=== PATIENT | female | born 1980 | race Caucasian/White ===

== ENCOUNTER 2021-04-04 13:06 | Emergency (ER) | payer OTHER, SELFPAY ==
[2021-04-04 13:07] VITALS: BP 138/90; PULSE 97; RESP 16; TEMP 36.8; O2SAT 98; BMI 29.5
--- NOTE | 2021-04-04 13:30 | RAD_ITS ---
STUDY: X-RAY - LEFT TIBIA AND FIBULA REASON FOR EXAM: Female, 40 years old. Injury/Pain TECHNIQUE: 3 view(s) of the tibia and fibula were obtained. COMPARISON: None. FINDINGS: Normal visualized tibia. Normal visualized fibula. The soft tissue structures are unremarkable. RAD/Tibia & Fibula 2 Views IMPRESSION: Normal x-ray examination of the tibia and fibula. Electronically Signed: Quang Lennon MD at 14:52 EST , Service support ,
--- NOTE | 2021-04-04 13:30 | RAD_ITS ---
STUDY: X-RAY - LEFT ANKLE REASON FOR EXAM: Female, 40 years old. Injury/Pain TECHNIQUE: 3 view(s) of the ankle. COMPARISON: None. FINDINGS: Normal visualized distal tibia and fibula. Normal medial and lateral malleoli. Normal tibiotalar articulation and ankle mortise. Normal visualized talus. Calcaneal spurs The visualized subtalar, talonavicular, calcaneocuboid and tarsal articulations are normal. The soft tissue structures are unremarkable. RAD/Ankle min 3 Views IMPRESSION: Calcaneal spurs, no demonstrated fracture or suspicious osseous lesion Electronically Signed: Quang Lennon MD at 14:50 EST , Service support ,
--- NOTE | 2021-04-04 13:31 | ED.VIS.LOWEX ---
HPI History of Present Illness HPI Narrative: Patient presents with pain and swelling to her left leg and ankle that began after an injury on 03/18/2021. Patient states she inverted her ankle at that time. Patient states she had x-rays of her foot and ankle done at that time which were negative. Patient was given an Aircast. Patient has been using that along with a different ankle brace for the past 2-1/2 weeks with minimal relief. Patient states her pain is worse with movement. Patient states it is better with rest. Patient admits to some brief intermittent episodes of tingling in her foot. Patient states her pain is otherwise sharp. Chief Complaint: Lower Extremity Injury Informant: patient Occured/Mechanism Mechanism/Context: Yes fall Comment: Inversion injury Onset/Context/Timing Onset: Weeks (2-04/18) Timing: Continuous Quality of Pain: Sharp Location: Left ankle and leg Worsened by: Movement Relieved by: Rest Associated Symptoms Associated Symptoms: Positive for Parasthesia (Brief intermittent paresthesias of the left foot); Negative for Weakness and Loss of Funtion PFSH PFSH Medical History (Updated 04/04/21 @ 15:[address] Gray Mclaughlin DO) Fibromyalgia Home Medications oxycodone-acetaminophen 1 tab PO Q6H PRN PRN 3 Days #12 tablet 04/04/21 [Rx Last Taken Unknown] Allergy/AdvReac Type Severity Reaction Status Date / Time hydrocodone AdvReac Other Verified 04/04/21 13:10 Surgical History H/O section H/O LEEP History of tonsillectomy Hx of appendectomy Social History Smoking Status: Former smoker ROS ROS ED Constitutional Constitutional ED: Denies chills or fever(s) Eyes Eyes: Denies blurry vision or change in vision ENT ENT ED: Denies rhinorrhea or sore throat Cardiovascular Cardiovascular: Denies chest pain or palpitations Respiratory/Chest Respiratory/Chest: Denies cough or dyspnea Gastrointestinal Gastrointestinal: Denies nausea or vomiting Genitourinary Genitourinary ED: Denies dysuria or hematuria Musculoskeletal Musculoskeletal: Denies back pain or neck pain Integumentary Denies abscess or rash Neurologic Neurologic: Denies headache(s) or weakness Allergic/Immunologic Allergic/Immunologic ED: Denies mouth swelling or urticaria EXAM Physical Exam Const Vital Signs: 04/04/21 13:07 Temperature 98.2 F Temperature Source Temporal Pulse Rate 97 Respiratory Rate 16 Blood Pressure 138/90 H Blood Pressure Mean 106 Pulse Ox 98 Oxygen Delivery Method Room Air Positive well nourished and well developed General Appearance ED: well developed HEENT Reports moist mucous membranes Neck full ROM Extremity Extremity Narrative: There is tenderness over the anterior aspect of the left ankle. There is mild tenderness of the medial malleolus. There is mild edema. There is no ecchymosis. There is no bony crepitance or step-off. There is no deformity noted. There is no tenderness over the fifth metatarsal. There is no tenderness over the proximal fibula. There is good pedal pulse noted. Sensation was intact to light touch in all digits. Capillary refill was less than 2 seconds in all digits. There is some mild tenderness over the posterior aspect of the medial head of the gastrocnemius. There is some mild pain over this area with dorsiflexion of the left ankle. Neuro oriented x3, CN's II-XII intact bilaterally, moves all extremities and no sensory deficits noted Sensorium / Orientation: alert Motor Exam: strength 5/5 throughout MDM MDM MDM Narrative Medical decision making narrative: X-rays of the left ankle were obtained. There are 3 views. On my interpretation, there is no acute fracture. There is no dislocation. There is no soft tissue swelling. Radiologist also interpreted the x-rays and agrees. X-rays of the left tibia and fibula were obtained. There are 3 views. On my interpretation, there is no acute fracture. There is no dislocation. There is no soft tissue swelling. Radiologist also interpreted the x-rays and agrees. Patient was advised of her findings. Patient was given a dose of Percocet here. Patient was given a prescription for a short course of Percocet. Patient was instructed to ice and elevate her left leg. We are unable to do a venous duplex of the left lower extremity today. Patient was given a dose of Lovenox and ordered an outpatient venous duplex of her left leg to be done tomorrow. Patient was given a referral for primary care physician for follow-up care in 3 to 5 days. Patient understands and is agreeable with the plan. All questions were answered. Radiography Diagnostic Testing: Clinical Impression(s) from Imaging Studies Ankle X-Ray 04/04/21 13:30 IMPRESSION: Calcaneal spurs, no demonstrated fracture or suspicious osseous lesion Electronically Signed: Quang Lennon MD at 14:50 EST , Service support , Tibia/Fibula X-Ray 04/04/21 13:30 IMPRESSION: Normal x-ray examination of the tibia and fibula. Electronically Signed: Quang Lennon MD at 14:52 EST , Service support , Discharge Plan Triage Chief Complaint: Lower Extremity Injury ED Provider: Gray Mclaughlin Dx/Rx/DC Orders Clinical Impression: Inversion sprain of left ankle Instructions: ED Muscle Strain, Extremity, ED Ankle Sprain (Adult) Prescriptions: New oxycodone-acetaminophen [oxycodone-acetaminophen] 1 TABLET tablet 1 tab PO Q6H PRN PRN (Reason: Pain) 3 Days Qty: 12 RF: 0 Other Ambulatory Orders: Venous Duplex US, Unilateral (Routine) Facility: [facility] - Location: [facility] Ordered By: Dr. Gray Mclaughlin Primary Care Provider: Care Physician,No Primary Referrals: Melissa Caban MD [STAFF PHYSICIAN] - 3-5 Days Care Physician,No Primary [Primary Care Provider] - Disposition Disposition: Home, Self Care Discharge Date/Time: 04/04/21 15:58
[2021-04-04] MEDS: oxyCODONE 5 MG Tablet PO (15:51)
[2021-04-04] MEDS: Enoxaparin 80 MG/0.8 ML Syringe SC (15:51)
== END 2021-04-04 15:58 | disposition home or self-care (01) ==
PROVIDERS: Emergency Provider Emergency Medicine
DX: S93.402A Sprain of unspecified ligament of left ankle, initial encounter (principal); X50.1XXA Overexertion from prolonged static or awkward postures, initial encounter; M79.7 Fibromyalgia; Z87.891 Personal history of nicotine dependence; M77.32 Calcaneal spur, left foot
CPT/HCPCS: 73590; 73610; 96372; 99283

== ENCOUNTER → 2021-04-05 13:52 | Outpatient (CLI) | payer OTHER, SELFPAY ==
--- NOTE | 2021-04-05 14:05 | VDLE_ITS ---
Reason For Study: Pain RIGHT LEFT CFV is compressible, spontaneous, phasic, GSV is normal. competent and demonstrates normal CFV is compressible, spontaneous, phasic, augmentation. competent, and demonstrates normal Procedure augmentation. This is a venous duplex using B-mode, color FV prox-mid is compressible with normal flow and spectral Doppler. venous flow noted. Exam performed in department. FV distal is partially compressible with Pt was seen in ED 04/04/2021, done as next minimal flow noted. day ED scan. Acute deep vein thrombosis is noted in the A preliminary report was called and/or faxed left FV distal, PopV, T/P Trunk, GastrocV, to ED. Patient taken to ED for treatment, no PTV, PeroV and SoleusV. PCP. VL/Venous Duplex US, Unilateral Interpretation Summary Acute deep venous thrombosis distal left femoral, popliteal, tibioperoneal trun k, gastrocnemius, posterior tibial, peroneal, and soleus veins Patent and compressible left great saphenous vein Normal flow patterns right common femoral vein Ordering Physician: Gray Mclaughlin Performed By: Khalida Rojas RVT
== END ==
PROVIDERS: Referring Provider Emergency Medicine; Visit Provider Emergency Medicine
DX: M79.605 Pain in left leg (principal)
CPT/HCPCS: 93971

== ENCOUNTER 2021-04-05 14:31 | Emergency (ER) | payer OTHER, SELFPAY ==
[2021-04-05 14:31] VITALS: BP 127/82; PULSE 91; RESP 18; TEMP 36.1; O2SAT 98; BMI 29.5
--- NOTE | 2021-04-05 15:19 | ED.VIS.LOWEX ---
HPI History of Present Illness Chief Complaint: Lower Extremity Injury Informant: patient Narrative Narrative: [id number] female arriving to the emergency department following an outpatient duplex ultrasound acute DVT in the fairly distal femoral vein AT/PT trunk, gastrocnemius, clot burden also noted in popliteal, PTV, para V, and soleus. Initial injury was on March 18 when she jumped from a roof onto scaffolding resulted in a left ankle injury. 2 sets of x-rays have been negative she developed swelling pain of the calf couple days ago. No pleuritic chest pain or shortness of breath noted with the patient. PFSH PFSH Medical History Fibromyalgia Home Medications oxycodone-acetaminophen 1 tab PO Q6H PRN PRN 3 Days #12 tablet 04/04/21 [Rx Last Taken Unknown] apixaban [Eliquis] 5 mg PO BID #74 tab 04/05/21 [Rx Last Taken Unknown] Allergy/AdvReac Type Severity Reaction Status Date / Time hydrocodone AdvReac Other Verified 04/05/21 14:34 Surgical History H/O section H/O LEEP History of tonsillectomy Hx of appendectomy Social History (Updated 04/05/21 @ 15:[address] Maverick Chris, ) Smoking Status: Former smoker substance use type: does not use ROS ROS ED Constitutional Constitutional ED: Denies chills or weight loss Eyes Eyes: Denies change in vision or diplopia ENT ENT ED: Denies ear pain, rhinorrhea or sore throat Cardiovascular Cardiovascular: Denies chest pain, orthopnea, palpitations or racing heartbeat Respiratory/Chest Respiratory/Chest: Denies cough, dyspnea or orthopnea Gastrointestinal Gastrointestinal: Denies abdominal pain, diarrhea, nausea or vomiting Genitourinary Genitourinary ED: Denies dysuria, hematuria or urinary frequency Musculoskeletal Musculoskeletal: Reports other Details: See history of present illness ; Denies arthralgias or myalgias Integumentary Denies abscess or rash Neurologic Neurologic: Denies headache(s) or weakness Psychiatric Psychiatric: Denies anxiety, depression, suicidal ideation or suicidal thoughts Endocrine Endocrinology: Denies polydipsia, polyphagia or polyuria Allergic/Immunologic Allergic/Immunologic ED: Denies mouth swelling, tongue swelling or urticaria EXAM Physical Exam Const Vital Signs: 04/05/21 14:31 Temperature 97 F L Temperature Source Temporal Pulse Rate 91 Respiratory Rate 18 Blood Pressure 127/82 H Blood Pressure Mean 97 Pulse Ox 98 Oxygen Delivery Method Room Air Positive well nourished and well developed General Appearance ED: well developed HEENT Reports normocephalic, head/scalp atraumatic and moist mucous membranes Eyes PERRL and EOMs intact bilaterally Eyes Narrative: EOMI Neck full ROM, no lymphadenopathy, supple and no JVD Resp normal respiratory effort and clear to auscultation bilaterally Cardio regular rate, regular rhythm and no murmurs GI normal to inspection, nondistended, normoactive bowel sounds and non-tender Palpation: soft Back/Spine no CVA tenderness and normal ROM Extremity Extremity Narrative: Left lower leg swelling. Tenderness of the left calf. General Extremety ED: Yes edema General Extremity: edema Neuro oriented x3 and CN's II-XII intact bilaterally Sensorium / Orientation: alert Motor Exam: strength 5/5 throughout Psych mental status grossly normal Mood & Affect: Negative for depressed or tearful Skin no rashes or lesions noted and no wounds MDM MDM MDM Narrative Medical decision making narrative: Duplex ultrasound was reviewed by myself. Patient was started on Eliquis. She is to follow-up with primary care as directed yesterday I would also recommend now that she is on day 17 of her ankle injury noting that is not improving that she would follow-up with podiatry. Discharge Plan Triage Chief Complaint: Lower Extremity Injury ED Provider: Maverick Chris Dx/Rx/DC Orders Clinical Impression: Acute deep vein thrombosis (DVT) of left lower extremity Instructions: ED Deep Vein Thrombosis (DVT) Prescriptions: New Eliquis 5 MG tablet 5 mg PO BID Qty: 74 RF: 0 No Action oxycodone-acetaminophen [oxycodone-acetaminophen] 1 TABLET tablet 1 tab PO Q6H PRN PRN (Reason: Pain) 3 Days Qty: 12 RF: 0 Primary Care Provider: Care Physician,No Primary Referrals: Venkatesh Baires DPM [STAFF PHYSICIAN] - As soon as possible (For Foot and Ankle) Melissa Caban MD [STAFF PHYSICIAN] - As soon as possible Care Physician,No Primary [Primary Care Provider] - Disposition Disposition: Home, Self Care
--- NOTE | 2021-04-06 17:55 | CASEMGMT ---
Pt called into the ED stating her insurance is requiring a prior authorization for the Eliquis. This RN CM contacted [facility] in [place], attempted Eliquis discount card but prior auth still required. This RN CM spoke [employer] and prior authorization obtained. This was confirmed with [facility] pharmacy. Discount card was also applied. Pt notified. Nadya Velazquez RN CM
--- NOTE | 2021-04-06 18:13 | CM.ED ---
KEON Note SW received call from patient. She said that she had come to the ED yesterday and was prescribed Eliquis 5mg but needed preauthorization. Patient said that she has blood clots. Patient said that she goes to the [facility] in [place]. KEON called Tunnel Drier Operator Tere Mccauley for assistance in this matter. Plan: Transportation Security Officer was updated and made aware of issue Serene KING
== END 2021-04-05 15:38 | disposition home or self-care (01) ==
PROVIDERS: Emergency Provider Emergency Medicine
DX: I82.4Z2 Acute embolism and thrombosis of unspecified deep veins of left distal lower extremity (principal); Z79.01 Long term (current) use of anticoagulants; Z87.891 Personal history of nicotine dependence
CPT/HCPCS: 99282

== ENCOUNTER → 2021-04-08 16:37 | Outpatient (CLI) | payer OTHER, SELFPAY ==
--- NOTE | 2021-04-08 16:39 | CT_ITS ---
STUDY: CTA CHEST REASON FOR EXAM: Female, 40 years old. Acute shortness of breath, chest pain RADIATION DOSAGE (If Supplied By Facility): CTDIvol = ( 9.88 ) mGy, DLP = ( 364.30 ) mGycm TECHNIQUE: The examination was performed with the intravenous administration of IV 100mL Isovue-370. Post-processing of the angiographic images was performed, with multiplanar reformation and 3D reconstruction. Individualized dose optimization techniques were used for this CT. COMPARISON: None. FINDINGS: Abnormal low-density filling defect noted within the distal aspect of the right pulmonary artery with extension of low density thrombus into the branches leading to the right upper right middle and right lower lobes. There are also filling defects noted within distal branches leading to the left lower lobe. Findings are consistent with diffuse bilateral PE, with more thrombus load noted in the right side. There is no evidence of right heart strain on this study. Normal thoracic aorta and visualized great vessels. There is no demonstrated aortic dissection. Normal heart and pericardium. Normal mediastinum. Normal hilar regions. Normal visualized trachea and bronchi. The lungs are well expanded. Normal pulmonary parenchyma. Normal pleura. Normal chest wall structures. Normal osseous structures. Normal visualized upper abdomen. CT/CTA Chest W/WO Contrast IMPRESSION: Bilateral PE with more thrombus load in the right side than the left. There is a low-density thrombus in the distal aspect of the main pulmonary artery extending into right upper middle and lower lobe branches as well as thrombus within branches leading to the left lower lobe. No superimposed infiltrate, effusion or infarct. No suspicious adenopathy N.B. : The above Results were Read Back by Quang Lennon MD to Kathy Robert OT, and understanding confirmed on 04/08/2021 17:18:57 (ET). Electronically Signed: Quang Lennon MD at 17:20 EST , Service support ,
== END ==
PROVIDERS: PCP Internal Medicine; Referring Provider Internal Medicine; Visit Provider Internal Medicine
DX: I82.402 Acute embolism and thrombosis of unspecified deep veins of left lower extremity (principal); S93.402A Sprain of unspecified ligament of left ankle, initial encounter
CPT/HCPCS: 71275; Q9967; A4216

== ENCOUNTER 2021-04-08 17:44 | Emergency (ER) | payer OTHER, SELFPAY ==
[2021-04-08 17:45] VITALS: BP 148/92; PULSE 88; RESP 16; TEMP 37.4; O2SAT 100; BMI 29.9
--- NOTE | 2021-04-08 18:18 | EKG12_ITS ---
Test Reason : CP Blood Pressure : / mmHG Vent. Rate : 075 BPM Atrial Rate : 075 BPM P-R Int : 162 ms QRS Dur : 086 ms QT Int : 372 ms P-R-T Axes : 046 022 034 degrees QTc Int : 415 ms Normal sinus rhythm Normal ECG Confirmed by FABIÁN LONGORIA, HEIDE ([id number]), photo editor JC LAWRENCE ([id number]) on 04/13/2021 9:32:44 AM Referred By: BB Confirmed By:HEIDE LOCKWOOD MD
--- NOTE | 2021-04-08 18:19 | EX.ED.DYSGE1 ---
HPI History of Present Illness Chief Complaint: Chest Pain Informant: patient Narrative Narrative: Patient sent to the ED for evaluation after CT angiography of the chest obtained as an outpatient is positive for bilateral pulmonary emboli. She inverted/sprained her left ankle 3 weeks ago, and had immediately swelling and discomfort from her ankle up to her knee but she did not have any issues prior to that. She rested for a day or 2, and then she was hobbling around on it but she was getting around. Her job involves being on her feet majority of the time, she has had no recent immobilization, long travel, hospitalization, or surgery. She has had no penetrating trauma to her leg. She did not have a PCP, she came to the emergency department for evaluation of the persistent swelling and popliteal discomfort particularly since she did not injure her knee, she was here on Monday when ultrasound was not available so she was given a dose of Lovenox and had an ultrasound the next day, that was just 3 days ago, and subsequently after being diagnosed with a DVT started on Eliquis. She states to me now that for about the past week she has been having dyspnea with exertion. She also has had some mild chest pressure that is intermittent and she does not know if it is necessarily associated with the dyspnea with exertion or not, but she does notice it when she takes a deep breath. No sharp pleuritic discomfort, it is substernal lower and nonlateralizing. No arm, back, jaw discomfort, no palpitations, no syncopal episodes although one time while she was riding in a electric cart in [facility] she did feel lightheaded and then went home and felt fine. She has a PCP now that she is just now getting established with and saw 1 time, Dr. Hernandez, he ordered CT angiography of the chest as an outpatient that was obtained today, showed pulmonary emboli and she was referred to the emergency department. [facility] Medical History Fibromyalgia Home Medications oxycodone-acetaminophen 1 tab PO Q6H PRN PRN 3 Days #12 tablet 04/04/21 [Rx Last Taken Unknown] Eliquis 5 mg PO BID #74 tab 04/05/21 [Rx Last Taken Unknown] Allergy/AdvReac Type Severity Reaction Status Date / Time hydrocodone AdvReac Other Verified 04/08/21 17:48 Surgical History H/O section H/O LEEP History of tonsillectomy Hx of appendectomy Social History Smoking Status: Former smoker substance use type: does not use ROS ROS ED Constitutional Constitutional ED: Denies chills or fever(s) Eyes Eyes: Denies change in vision or diplopia ENT ENT ED: Denies rhinorrhea or sore throat Cardiovascular Cardiovascular: Reports as per HPI, chest pain and other Details: Left lower extremity edema below the knee ; Denies orthopnea or palpitations Respiratory/Chest Respiratory/Chest: Reports dyspnea on exertion; Denies cough or orthopnea Gastrointestinal Gastrointestinal: Denies abdominal pain, diarrhea, nausea or vomiting Genitourinary Genitourinary ED: Denies dysuria or hematuria Musculoskeletal Musculoskeletal: Reports as per HPI and extremity pain; Denies back pain or neck pain Integumentary Denies abscess or rash Neurologic Neurologic: Denies headache(s), paresthesias or weakness Psychiatric Psychiatric: Denies anxiety or suicidal thoughts EXAM Physical Exam Const Vital Signs: 04/08/21 17:45 04/08/21 18:09 Temperature 99.3 F H Temperature Source Temporal Pulse Rate 88 Respiratory Rate 16 Respiratory Effort Normal Non-Labored Blood Pressure 148/92 H Blood Pressure Mean 110 Pulse Ox 100 Oxygen Delivery Method Room Air Positive well nourished and well developed General Appearance ED: well developed and NAD HEENT Reports moist mucous membranes normocephalic and atraumatic Eyes PERRL and EOMs intact bilaterally Neck full ROM and supple Resp normal respiratory effort and clear to auscultation bilaterally Cardio regular rate, regular rhythm and no murmurs Cardio Narrative: No tachycardia at rest GI non-tender and non-distended Auscultation: normoactive bowel sounds Palpation: soft Back/Spine no CVA tenderness General Back: other FROM Extremity Extremity Narrative: L LE in orthotic boot. Mild tenderness lateral malleolus, no deformities. Edema up to the knee, mild popliteal tenderness no calf tenderness. No signs of cellulitis or abscess. Skin intact. No palpable cords in the calf or the thigh. General Extremety ED: Yes edema; Negative for pulses abnormal or tenderness General Extremity: edema left lower extremity mild (Asymmetric compared with normal RLE); Negative for pulses abnormal Neuro oriented x3, CN's II-XII intact bilaterally and no sensory deficits noted Sensorium / Orientation: awake and alert Motor Exam: strength 5/5 throughout Skin no rashes or lesions noted and no wounds MDM MDM MDM Narrative Medical decision making narrative: Patient is asymptomatic at rest with normal vital signs and no hypoxemia, her pulse ox is 100% on room air. Labs, EKG were obtained, is all within normal limits including her troponin which is less than 3, her EKG is normal, she has no tachycardia or hypoxemia. Her PSI score is 42, which is class I very low risk of 30-day mortality. She just recently started treatment for pulmonary embolus and sounds like she had symptoms that started prior to the treatment was started. Her CTA shows no signs of right heart strain, her EKG and troponin are normal, and she is asymptomatic at rest. At this time I reassured her it is safe for discharge home and continuing the Eliquis as prescribed, using her symptoms as guidance of 1 to rest. She is comfortable with that plan we discussed reasons to return, follow-up advised. Lab Data Attestation: I reviewed the patient's lab results. Labs: Laboratory Results - last 24 hr 04/08/21 04/08/21 18:25 18:25 WBC 6.7 RBC 4.15 L Hgb 11.0 L Hct 35.1 L MCV 84.6 MCH 26.5 L MCHC 31.3 L RDW Std Deviation 40.9 RDW Coeff of Kelly 13.2 Plt Count 467 H MPV 8.3 Immature Gran % (Auto) 0.300 Neut % (Auto) 58.5 Lymph % (Auto) 33.5 [place] % (Auto) 5.5 Eos % (Auto) 1.5 Baso % (Auto) 0.7 Absolute Neuts (auto) 3.9 Absolute Lymphs (auto) 2.26 Nucleated RBC % 0 Sodium 140 Potassium 3.7 Chloride 106 Carbon Dioxide 26.0 Anion Gap 8 BUN 13 Creatinine 0.69 Estim Creat Clear Calc 91.72 Est GFR (MDRD) Af Amer 119 Est GFR (MDRD) Non-Af 98 BUN/Creatinine Ratio 18.8 Glucose 91 Calcium 9.4 Troponin I High Sens < 3 L Radiography Diagnostic Testing: STUDY: CTA CHEST REASON FOR EXAM: Female, 40 years old. Acute shortness of breath, chest pain RADIATION DOSAGE (If Supplied By Facility): CTDIvol = ( 9.88 ) mGy, DLP = ( 364.30 ) mGycm TECHNIQUE: The examination was performed with the intravenous administration of IV 100mL Isovue-370. Post-processing of the angiographic images was performed, with multiplanar reformation and 3D reconstruction. Individualized dose optimization techniques were used for this CT. COMPARISON: None. FINDINGS: Abnormal low-density filling defect noted within the distal aspect of the right pulmonary artery with extension of low density thrombus into the branches leading to the right upper right middle and right lower lobes. There are also filling defects noted within distal branches leading to the left lower lobe. Findings are consistent with diffuse bilateral PE, with more thrombus load noted in the right side. There is no evidence of right heart strain on this study. Normal thoracic aorta and visualized great vessels. There is no demonstrated aortic dissection. Normal heart and pericardium. Normal mediastinum. Normal hilar regions. Normal visualized trachea and bronchi. The lungs are well expanded. Normal pulmonary parenchyma. Normal pleura. Normal chest wall structures. Normal osseous structures. Normal visualized upper abdomen. 04/08/21 1720Date cc: Dr. Melissa Caban MD ~*Signed ADDENDUM by Dr. Alonos Lennon MD on 04/08/[address]/CTA Chest W/WO Contrast IMPRESSION: Bilateral PE with more thrombus load in the right side than the left. There is a low-density thrombus in the distal aspect of the main pulmonary artery extending into right upper middle and lower lobe branches as well as thrombus within branches leading to the left lower lobe. No superimposed infiltrate, effusion or infarct. No suspicious adenopathy N.B. : The above Results were Read Back by Quang Lennon MD to Kathy Robert OT, and understanding confirmed on 04/08/2021 17:18:57 (ET). Electronically Signed: Quang Lennon MD at 17:20 EST , Service support , 04/08/21 1728 Rhythm Strip Rhythm Strip: Sinus Rhythm Rate: 88 Ectopy: None EKG Initial EKG: Attestation: I personally reviewed and interpreted this EKG as follows: Interpretation: Sinus Rhythm (75) and No Acute Injury Pattern Comments: Normal EKG Discharge Plan Triage Chief Complaint: Chest Pain ED Provider: Med Nguyen Dx/Rx/DC Orders Clinical Impression: Acute pulmonary embolism Instructions: Pulmonary Embolism Prescriptions: Continued oxycodone-acetaminophen 1 TABLET tablet 1 tab PO Q6H PRN PRN (Reason: Pain) 3 Days Qty: 12 RF: 0 Eliquis 5 MG tablet 5 mg PO BID Qty: 74 RF: 0 Primary Care Provider: Melissa Caban Referrals: Melissa Caban MD [Primary Care Provider] - As soon as possible (Call for follow-up within the next 5 days, probably will need to be after the iday ) Disposition Disposition: Home, Self Care
[2021-04-08 18:29] LABS: Absolute Lymphocyte Count 2.26 X10^3/uL (0.83-4.51); Absolute Neutrophil Count 3.9 X10^3/uL (2.0-7.7); Basophil# 0.05 X10^3/uL; Basophil% 0.7 % (0-1); Eosinophils% 1.5 % (0-5); Hematocrit 35.1 % (37-47); Lymphocyte # 2.26 X10^3/ul (0.83-4.51); Lymphocyte % 33.5 % (19-41); Mean Corp Hgb Conc 31.3 g/dL (32-36); Mean Corpuscular Hgb 26.5 pg (27.0-32.0); Mean Corpuscular Volume 84.6 fL (81-99); Mean Platelet Vol. 8.3 fl (6.2-12.0); Monocyte# 0.37 X10^3/uL; Monocyte% 5.5 % (0-10); NRBC Flagged by Analyzer 0 % (0-5); Neutrophil # 3.94 X10^3/uL (2.7-7.7); Neutrophil % 58.5 % (47-70); Platelet Count 467 K/mm3 (150-450); RBC Distribution Width CV 13.2 % (11.6-14.6); RBC Distribution Width SD 40.9 fl (35.1-43.9); Red Blood Count 4.15 M/mm3 (4.2-5.4); White Blood Count 6.7 K/mm3 (4.4-11.0)
[2021-04-08 18:46] LABS: Anion Gap 8 (5-15); BUN 13 mg/dL (7-18); BUN/Creat Ratio 18.8 RATIO (10-20); Calcium,Total 9.4 mg/dL (8.5-10.1); Chloride 106 mmol/L (98-107); Creatinine, Serum 0.69 mg/dL (0.55-1.02); EST Glomerular Filtration Rate 98 mL/min (>60); Est Glom Filt Rate - Afr Amer 119 mL/min (>60); Estimated Creatinine Clearance 91.72 ml/min; Glucose 91 mg/dL (74-106); Potassium 3.7 mmol/L (3.5-5.1); Sodium Level 140 mmol/L (136-145); Troponin-I HS < 3 pg/mL (3.0-54.0)
== END 2021-04-08 19:42 | disposition home or self-care (01) ==
PROVIDERS: Emergency Provider Emergency Medicine; PCP Internal Medicine
DX: I26.99 Other pulmonary embolism without acute cor pulmonale (principal); Z87.891 Personal history of nicotine dependence; I82.409 Acute embolism and thrombosis of unspecified deep veins of unspecified lower extremity
CPT/HCPCS: 80048; 84484; 85025; 93005; 99283; A4216

== ENCOUNTER 2021-04-18 00:32 | Emergency (ER) | payer OTHER, SELFPAY ==
[2021-04-18 00:32] VITALS: BP 142/85; PULSE 90; RESP 16; TEMP 37.1; O2SAT 98; BMI 30.8
[2021-04-18 00:37] VITALS: O2SAT 98
--- NOTE | 2021-04-18 00:37 | EKG12_ITS ---
Test Reason : Blood Pressure : / mmHG Vent. Rate : 084 BPM Atrial Rate : 084 BPM P-R Int : 162 ms QRS Dur : 084 ms QT Int : 380 ms P-R-T Axes : 053 016 043 degrees QTc Int : 449 ms Normal sinus rhythm Normal ECG Confirmed by ETHAN LONGORIA, LEFTY ([id number]), news videotape editor JC LAWRENCE ([id number]) on 04/28/2021 10:49:11 AM Referred By: JORGE Confirmed By:LEFTY LONG MD
--- NOTE | 2021-04-18 00:37 | RAD_ITS ---
STUDY: X-RAY CHEST REASON FOR EXAM: Female, 41 years old. chest pain TECHNIQUE: Single AP portable view of the chest. COMPARISON: None. FINDINGS: The lungs are clear and expanded. There is no demonstrated pleural abnormality. Normal size heart. Normal mediastinum and leno. Normal visualized pulmonary arteries. Normal visualized aortic arch and descending thoracic aorta. Normal visualized thoracic spine. Normal visualized ribs, clavicles, and shoulders. There is no demonstrated abnormality of the visualized soft tissue structures of the upper abdomen. RAD/Chest 1 View (Portable) IMPRESSION: Normal x-ray examination of the chest. Electronically Signed: Rafael Falcon MD at 1:09 EST Tel , Service support ,
[2021-04-18 00:44] LABS: Absolute Lymphocyte Count 3.31 X10^3/uL (0.83-4.51); Absolute Neutrophil Count 3.4 X10^3/uL (2.0-7.7); Basophil# 0.06 X10^3/uL; Basophil% 0.8 % (0-1); Eosinophil# 0.18 X10^3/uL; Eosinophils% 2.4 % (0-5); Hematocrit 34.6 % (37-47); Hemoglobin 10.9 g/dL (12.0-15.0); Lymphocyte # 3.31 X10^3/ul (0.83-4.51); Lymphocyte % 44.1 % (19-41); Mean Corp Hgb Conc 31.5 g/dL (32-36); Mean Corpuscular Hgb 26.3 pg (27.0-32.0); Mean Corpuscular Volume 83.4 fL (81-99); Mean Platelet Vol. 8.5 fl (6.2-12.0); Monocyte# 0.57 X10^3/uL; Monocyte% 7.6 % (0-10); NRBC Flagged by Analyzer 0 % (0-5); Neutrophil # 3.38 X10^3/uL (2.7-7.7); Platelet Count 506 K/mm3 (150-450); RBC Distribution Width SD 39.6 fl (35.1-43.9); Red Blood Count 4.15 M/mm3 (4.2-5.4); White Blood Count 7.5 K/mm3 (4.4-11.0)
--- NOTE | 2021-04-18 01:06 | CT_ITS ---
STUDY: CTA CHEST REASON FOR EXAM: Female, 41 years old. PE with increased pain, dyspnea RADIATION DOSAGE (If Supplied By Facility): CTDIvol = ( 11.97 ) mGy, DLP = ( 445.67 ) mGycm TECHNIQUE: The examination was performed with the intravenous administration of IV 100mL Isovue-370. Post-processing of the angiographic images was performed, with multiplanar reformation and 3D reconstruction. Individualized dose optimization techniques were used for this CT. COMPARISON: None. FINDINGS: Normal enhancement of the main pulmonary artery and right and left pulmonary arteries. Normal enhancement of the bilateral peripheral pulmonary arteries. There is no demonstrated pulmonary embolism. Normal thoracic aorta and visualized great vessels. There is no demonstrated aortic dissection. Normal heart and pericardium. Normal mediastinum. Normal hilar regions. Normal visualized trachea and bronchi. The lungs are well expanded. Normal pulmonary parenchyma. Normal pleura. Normal chest wall structures. Normal osseous structures. Normal visualized upper abdomen. CT/CTA Chest W/WO Contrast IMPRESSION: Normal CTA chest examination, without a demonstrated pulmonary embolism or arterial dissection. Electronically Signed: Rafael Falcon MD at 3:25 EST Tel , Service support ,
[2021-04-18 01:23] LABS: Anion Gap 7 (5-15); BUN 14 mg/dL (7-18); BUN/Creat Ratio 17.8 RATIO (10-20); Calcium,Total 9.2 mg/dL (8.5-10.1); Chloride 108 mmol/L (98-107); Creatinine, Serum 0.79 mg/dL (0.55-1.02); EST Glomerular Filtration Rate 85 mL/min (>60); Est Glom Filt Rate - Afr Amer 102 mL/min (>60); Estimated Creatinine Clearance 79.29 ml/min; Glucose 108 mg/dL (74-106); Potassium 3.5 mmol/L (3.5-5.1); Sodium Level 141 mmol/L (136-145); Troponin-I HS < 3 pg/mL (3.0-54.0)
[2021-04-18 01:33] LABS: International Normalized Ratio 1.1; Prothrombin Time (Protime)PT. 13.6 SECONDS (11.7-14.9)
--- NOTE | 2021-04-18 02:51 | EDS_ITS ---
HPI History of Present Illness Chief Complaint: Chest Pain Informant: patient Onset/Context/Timing Onset: Yesterday Current Severity: Mild Maximum Severity: Moderate Narrative Narrative: Patient presents secondary to increased pain with recent diagnosis of PE. She was diagnosed with PEs on April 08. She is currently on Eliquis. She states she had pain across her shoulders yesterday and into her mid back today. Tonight she developed heaviness in her chest that radiated to her left arm. She felt hot and dizzy. She does report shortness of breath with exer tion. No fever or chills. PFSH PFSH Medical History Fibromyalgia Pulmonary embolism Home Medications oxycodone-acetaminophen 1 tab PO Q6H PRN PRN 3 Days #12 tablet 04/04/21 [Rx Last Taken Unknown] Eliquis 5 mg PO BID #74 tab 04/05/21 [Rx Last Taken Unknown] Allergy/AdvReac Type Severity Reaction Status Date / Time hydrocodone AdvReac Other Verified 04/18/21 00:35 Surgical History H/O section H/O LEEP History of tonsillectomy Hx of appendectomy Social History Smoking Status: Former smoker substance use type: does not use ROS ROS ED Constitutional Constitutional ED: Denies chills or fever(s) Eyes Eyes: Denies change in vision ENT ENT ED: Denies sore throat Cardiovascular Cardiovascular: Reports chest pain Respiratory/Chest Respiratory/Chest: Reports dyspnea; Denies cough Gastrointestinal Gastrointestinal: Denies abdominal pain, diarrhea, nausea or vomiting Genitourinary Genitourinary ED: Denies dysuria Musculoskeletal Musculoskeletal: Reports back pain; Denies neck pain Integumentary Denies rash Neurologic Neurologic: Denies headache(s) or weakness Allergic/Immunologic Allergic/Immunologic ED: Denies urticaria EXAM Physical Exam Const Vital Signs: 04/18/21 00:32 04/18/21 00:35 04/18/21 00:37 Temperature 98.8 F Temperature Source Oral Pulse Rate 90 Respiratory Rate 16 Respiratory Effort Normal Blood Pressure 142/85 H Blood Pressure Mean 104 Pulse Ox 98 98 Oxygen Delivery Method Room Air Nasal Cannula Oxygen Flow Rate (L/min) 2 04/18/21 03:06 Temperature Temperature Source Pulse Rate 70 Respiratory Rate 17 Respiratory Effort Blood Pressure 109/66 Blood Pressure Mean 80 Pulse Ox 100 Oxygen Delivery Method Room Air Oxygen Flow Rate (L/min) Positive well nourished and well developed General Appearance ED: well developed HEENT Reports moist mucous membranes Eyes PERRL and EOMs intact bilaterally Neck supple Chest Wall inspection of chest normal and palpation of chest normal Resp normal respiratory effort and clear to auscultation bilaterally Cardio regular rate and regular rhythm GI non-tender Palpation: soft Extremity normal to inspection Neuro oriented x3 Sensorium / Orientation: alert Psych mental status grossly normal Skin no rashes or lesions noted MDM MDM MDM Narrative Medical decision making narrative: Lab work, EKG, chest x-ray ordered per nursing protocol. After I told patient CTA of the chest was added. At the time of my evaluation she was on 2 L nasal cannula, but I was advised by nursing that that was placed for comfort only. She was not hypoxic. Lab Data Attestation: I reviewed the patient's lab results. Labs: Laboratory Results - last 24 hr 04/18/21 04/18/21 04/18/21 00:40 00:40 00:40 WBC 7.5 RBC 4.15 L Hgb 10.9 L Hct 34.6 L MCV 83.4 MCH 26.3 L MCHC 31.5 L RDW Std Deviation 39.6 RDW Coeff of Kelly 13.0 Plt Count 506 H MPV 8.5 Immature Gran % (Auto) 0.100 Neut % (Auto) 45.0 L Lymph % (Auto) 44.1 H [place] % (Auto) 7.6 Eos % (Auto) 2.4 Baso % (Auto) 0.8 Absolute Neuts (auto) 3.4 Absolute Lymphs (auto) 3.31 Nucleated RBC % 0 PT 13.6 INR 1.1 Sodium 141 Potassium 3.5 Chloride 108 H Carbon Dioxide 26.0 Anion Gap 7 BUN 14 Creatinine 0.79 Estim Creat Clear Calc 79.29 Est GFR (MDRD) Af Amer 102 Est GFR (MDRD) Non-Af 85 BUN/Creatinine Ratio 17.8 Glucose 108 H Calcium 9.2 Troponin I High Sens < 3 L Radiography Chest X-Ray - ED: 1 View, Read by ED Physician and No Acute Disease Diagnostic Testing: Clinical Impression(s) from Imaging Studies Chest X-Ray 04/18/21 00:37 IMPRESSION: Normal x-ray examination of the chest. Electronically Signed: Rafael Falcon MD at 1:09 EST Tel , Service support , Chest CTA 04/18/21 01:06 IMPRESSION: Normal CTA chest examination, without a demonstrated pulmonary embolism or arterial dissection. Electronically Signed: Rafael Falcon MD at 3:25 EST Tel , Service support , EKG Initial EKG: Attestation: I personally reviewed and interpreted this EKG as follows: Interpretation: Sinus Rhythm (Sinus at 84 with no acute ischemia.) Treatment and Re-Evaluation Comments:: Lab work unremarkable. Troponin negative. Chest x-ray reveals no acute abnormality and CTA reveals no evidence of pulmonary embolism or dissection. Test results are discussed with the patient. She is taken off of oxygen and she will be observed for 20 minutes to ensure she does not drop her oxygen level. Plan will be to discharge to home. Discharge Plan Triage Chief Complaint: Chest Pain ED Provider: Isabel Cabello Dx/Rx/DC Orders Clinical Impression: Chest pain, non-cardiac Instructions: ED Chest Pain, Noncardiac Prescriptions: No Action oxycodone-acetaminophen 1 TABLET tablet 1 tab PO Q6H PRN PRN (Reason: Pain) 3 Days Qty: 12 RF: 0 Eliquis 5 MG tablet 5 mg PO BID Qty: 74 RF: 0 Primary Care Provider: Melissa Caban Referrals: Melissa Caban MD [Primary Care Provider] - 3-5 Days if not improving Disposition Disposition: Home, Self Care
[2021-04-18 03:06] VITALS: BP 109/66; PULSE 70; RESP 17; O2SAT 100
[2021-04-18 04:03] VITALS: BP 104/57; PULSE 76; RESP 18; O2SAT 95
== END 2021-04-18 04:04 | disposition home or self-care (01) ==
PROVIDERS: Emergency Provider Emergency Medicine; PCP Internal Medicine; Visit Provider Emergency Medicine
DX: R07.89 Other chest pain (principal); R06.02 Shortness of breath; Z87.891 Personal history of nicotine dependence; Z86.711 Personal history of pulmonary embolism; M79.7 Fibromyalgia; Z79.01 Long term (current) use of anticoagulants
CPT/HCPCS: 71045; 71275; 80048; 84484; 85025; 85610; 93005; 99284; Q9967

== ENCOUNTER 2021-05-25 09:15 | Outpatient (CLI) | payer OTHER, SELFPAY ==
[2021-05-25 12:16] LABS: Absolute Lymphocyte Count 1.83 X10^3/uL (0.83-4.51); Absolute Neutrophil Count 2.4 X10^3/uL (2.0-7.7); Basophil# 0.04 X10^3/uL; Basophil% 0.8 % (0-1); Eosinophil# 0.19 X10^3/uL; Eosinophils% 3.9 % (0-5); Hematocrit 33.1 % (37-47); Hemoglobin 10.1 g/dL (12.0-15.0); Lymphocyte # 1.83 X10^3/ul (0.83-4.51); Lymphocyte % 37.8 % (19-41); Mean Corp Hgb Conc 30.5 g/dL (32-36); Mean Corpuscular Hgb 25.7 pg (27.0-32.0); Mean Corpuscular Volume 84.2 fL (81-99); Mean Platelet Vol. 8.9 fl (6.2-12.0); Monocyte# 0.37 X10^3/uL; Monocyte% 7.6 % (0-10); NRBC Flagged by Analyzer 0 % (0-5); Neutrophil % 49.7 % (47-70); Platelet Count 411 K/mm3 (150-450); RBC Distribution Width CV 13.9 % (11.6-14.6); Red Blood Count 3.93 M/mm3 (4.2-5.4); White Blood Count 4.8 K/mm3 (4.4-11.0)
[2021-05-25 12:28] LABS: Vitamin D,25 Hydroxy 14.8 ng/mL
[2021-05-25 13:00] LABS: AST(SGOT) 8 U/L (15-37); Alanine Aminotransfer ALT/SGPT 14 U/L (13-56); Albumin, Serum 3.5 g/dL (3.2-5.0); Alkaline Phosphatase 45 U/L (45-117); Anion Gap 6 (5-15); BUN 9 mg/dL (7-18); BUN/Creat Ratio 14.6 RATIO (10-20); Calcium,Total 8.8 mg/dL (8.5-10.1); Chloride 109 mmol/L (98-107); Cholesterol 168 mg/dL (200); Creatinine, Serum 0.62 mg/dL (0.55-1.02); EST Glomerular Filtration Rate 112 mL/min (>60); Est Glom Filt Rate - Afr Amer 136 mL/min (>60); Globulin 3.6 g/dL (2.2-4.2); Glucose 93 mg/dL (74-106); High Density Lipoprotein 58 mg/dL; Iron 19 ug/dL (50-170); Iron Binding Capacity,Total 439 ug/dL (250-450); PERCENT IRON SATURATION 4.3 % (15.0-55.0); Potassium 3.8 mmol/L (3.5-5.1); Protein, Total 7.1 g/dL (6.4-8.2); Sodium Level 141 mmol/L (136-145); Thyroid Stim Hormone (TSH) 0.69 uIU/mL (0.358-3.74); Triglycerides 105 mg/dL; Very Low Density Lipoprotein 21 mg/dL (5-40)
== END 2021-05-25 23:59 | disposition home or self-care (01) ==
LOC: BIMLAB 09:16
PROVIDERS: PCP Internal Medicine; Referring Provider Internal Medicine; Visit Provider Internal Medicine
DX: D64.9 Anemia, unspecified (principal); Z13.220 Encounter for screening for lipoid disorders; R21 Rash and other nonspecific skin eruption; E55.9 Vitamin D deficiency, unspecified
CPT/HCPCS: 36415; 80053; 80061; 82306; 83540; 83550; 84443; 85025

== ENCOUNTER 2021-06-02 11:41 | Outpatient (CLI) | payer OTHER, SELFPAY | END 2021-06-02 23:59 | disposition home or self-care (01) | LOC: LABSPEC 11:41 | PROVIDERS: PCP Internal Medicine; Visit Provider Internal Medicine | DX: D64.9 Anemia, unspecified (principal); E61.1 Iron deficiency | CPT/HCPCS: 82274 ==

== ENCOUNTER 2021-07-08 15:30 | Outpatient (RCR) | payer OTHER, SELFPAY ==
--- NOTE | 2021-05-06 11:33 | HP.PTEVAL_ITS ---
Patient's Visit Information HUBERT HERNANDEZ is a 41 year old F referred to Physical Therapy by Dr. Deny Rogers DPM with a diagnosis of Left Ankle Sprain. Date of Evaluation: 05/06/21 Physical Therapist: Cayla Ibarra DPT - Visit Plan Frequency: 2x /Week Duration: 4 Weeks Plan: Aquatic Therapy- focus on LE and core strength/stabilization, proprioception and functional mobility. HEP Given IE: ankle DF/PF, Inv/Ever, Circles, Alphabet, Gastroc Stretch with towel and weight shifting. - Subjective Mar 18, 2021 pt reports that she was taking down scaffolding at her house and she took a fall. She turned her ankle. Went to urgent care and they took x- rays reported she was fine to return to work with an aircast. She went back to work Mar 25 and was having severe pain. Went to ER- diagnosed with blood clots and a PE. Was then sent to PCP for medical management and certified rehabilitation counselor for ankle. She has had x-rays but no MRI. She went to see Associate Professor Of Management and diagnosed with torn ligaments. She has pain when she has been up and walking- achy- she does not feel stable without the boot. She has a vice flying instructor around the toes. Describes the pain as dull and achy, throbbing. Worst: 5/10. Eases: sitting down and putting it up. Best: 0/10. She was told to wear the boot all the time- but now she was told that if she is sitting she can take the boot off- but if she is up she needs to have it on. Numbness is along the toes and lateral aspect of the foot. Sleep: disturbed- wakes her up if she turns. She has an orthotic in the boot but has never worn them before- recommendation from the MD. 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 PMHx/Meds: updated at [facility] in system. - Objective Posture: FH, RS can correct but does not maintain. Gait: antalgic- CAM walker on the left LE- poor heel/toe pattern. SLS: weight shift but unable to SLS due to pain and fear. HR/TR: able seated but unable to equally weight shift in standing. Flex: Gastroc: severe, Solues: severe, Hamstring: severe. Strength: Ankle: 3/5, Knee: 4+/5, Hip: 4+/5, Core: fair. ROM: DF: 10 degrees from neutral, PF: 30 degrees, Inver: 15 degrees Ever: 10 degrees. Palpation: tender along achilles, plantar fascia and medial and lateral malleolus - Balance/Special Test Scores Lower Extremity Functional Score: 30 - Goals Goal 1:: Patient will be I with HEP and progression Goal Time Frame: 4-6 Weeks Goal 2:: Patient will ambulate >300 feet with a normalized gait pattern Goal Time Frame: 4-6 Weeks Goal 3:: Patient will asc/desc 8 recip with 1 HR Goal Time Frame: 4-6 Weeks Goal 4:: Patient will SLS for 30 sec without LOB Goal Time Frame: 4-6 Weeks - Rehabilitation Potential Physical Therapy Diagnosis: Patient presents with hypomobility s/p ankle sprain- she has decreased pain free ROM, LE and core strength/stabilization, proprioception, flex and muscular endurance leading to poor balance, abnormal gait and increased pain with functional mobility. Rehabilitation Potential: Good - Anticipated Interventions Patient/Client Instruction: Educate patient on: Benefits of Fitness Program Therapeutic Exercise to Include: Strength training, Power training, Endurance training, Balance training, Coordination, Agility training, Body mechanics, Postural training, Flexibilty training, Gait and locomotor training, Neuromotor development, In an aquatic setting, Dynamic Lumbar Stabilization, Scapular Strength/Stabilization For the Purpose of:: To improve muscle performance and motor function Thank you for the opportunity to evaluate your patient. For Medicare and Medicare HMO plans, please review the plan of care and approve it. It will need to be FAXED BACK to us at [phone] for Medicare purposes. For Medicare only, by signing this I certify the plan of care. Please let me know if there are questions or concerns regarding this plan of care. Physician Signature: Date:
--- NOTE | 2021-06-10 15:51 | HP.PTREVAL ---
Dr. Deny Rogers, DPM, It has been my pleasure to treat HUBERT HERNANDEZ over the last 9 visits for Left Ankle Sprain. Please see the progress note below for an update on the physical therapy plan of care! 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 The morning is much better but after PT or end of the day its really painful- more she worked than pain. She still has a lot of pain with stairs due to the lack of dorsiflexion. Increased pain with DF, Inver and Eversion. When she is just doing her normal ADL's she is wearing her shoes. But she has an ankle brace for anything else- but to carry the boot in case she needs it. 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 Goes back to the MD to the 23 of June. Objective/Function: Posture: FH, RS can correct but does not maintain. Gait: antalgic- decrease stance time- lace up boots- poor heel/toe- pattern- slow brennan. SLS: 3 seconds then loss of balance. HR/TR: able standing but weight shifted to right Flex: Gastroc: moderate, Solues: moderate, Hamstring: moderate. Strength: Ankle: 4/5, Knee:5/5, Hip: 4+/5, Core: fair. ROM: DF: 10 degrees, PF: 60 degrees, Inver: 30 degrees Ever: 20 degrees. Palpation: lateral malleolus Plan Plan: 06/10/2021: Continue aquatic based PT- progress towards goals. *f/u with supervising PT next appt. Would recommend continued AT at this time d/t progress made, however room for greater improvement. *f/u with new HEP tasks. *Progress all. Aquatic Therapy- focus on LE and core strength/stabilization, proprioception and functional mobility Balance/Gait/Functional tests - Balance/Special Test Scores Lower Extremity Functional Score: 34 Goals Goal 1:: Patient will be I with HEP and progression Goal Time Frame: 4-6 Weeks Goal Progress: Progressing Goal 2:: Patient will ambulate >300 feet with a normalized gait pattern Goal Time Frame: 4-6 Weeks Goal Progress: Progressing Goal 3:: Patient will asc/desc 8 recip with 1 HR Goal Time Frame: 4-6 Weeks Goal Progress: Progressing Goal 4:: Patient will SLS for 30 sec without LOB Goal Time Frame: 4-6 Weeks Goal Progress: Progressing Anticipated Interventions Patient/Client Instruction: Educate patient on: Benefits of Fitness Program Therapeutic Exercise to Include: Strength training, Power training, Endurance training, Balance training, Coordination, Agility training, Body mechanics, Postural training, Flexibilty training, Gait and locomotor training, Neuromotor development, In an aquatic setting, Dynamic Lumbar Stabilization, Scapular Strength/Stabilization For the Purpose of:: To improve muscle performance and motor function Please do not hesitate to contact me at [phone] by phone or if you have questions or concerns regarding this new plan of care! Sincerely, NORMAN HarveyT
--- NOTE | 2021-09-29 10:45 | HP.PTDCSUM_ITS ---
It has been my pleasure to treat HUBERT HERNANDEZ referred by Dr. Deny Rogers DPM, with the diagnosis of Left Ankle Sprain for a total of 17 visit(s). Discharge Date: Please see the following information for a summary of their discharge status. Subjective: Tried without the boot this weekend- was able to do 2 days including a shift at work- then paid for it on monday and had to elevate, soak and return to boot for the day. Monday she was able to go back to the shoe. She does not have insurance after Monday due being off work. LLE Pain Intensity (Out of 10): 1 % Improvement: 50 Objective/Function: Posture: good throughout treatment session. Gait: antalgic- decrease stance time- lace up boots- poor heel/toe SLS: 15 seconds then loss of balance. HR/TR: able standing but weight shifted to right Flex: Gastroc: moderate, Solues: moderate, Hamstring: moderate. Strength: Ankle: 4+/5, Knee:5/5, Hip: 4+/5, Core: fair. ROM: DF: 10 degrees, PF: 60 degrees, Inver: 30 degrees Ever: 20 degrees. Palpation: lateral malleolus Goal 1:: Patient will be I with HEP and progression Goal Progress: Progressing Goal 2:: Patient will ambulate >300 feet with a normalized gait pattern Goal Progress: Progressing Goal 3:: Patient will asc/desc 8 recip with 1 HR Goal Progress: Progressing Goal 4:: Patient will SLS for 30 sec without LOB Goal Progress: Progressing Plan: 07/08/21: D/C due to insurance issues- can be I with HEP in pool and will wean herself from the boot. *f/u with supervising PT. Would recommend d/c to progress to I pool program at [facility] since insurance will be ending soon. Has been given page of exc. If insurance was not an issue, would recommend transition to land PT at this time. 06/10/2021: Continue aquatic based PT- progress towards goals. Aquatic Therapy- focus on LE and core strength/stabilization, proprioception and functional mobility If there are questions or concerns regarding this patient's physical therapy, please feel free to call me at [phone]. Thank you for the referral of this patient. Sincerely, Cayla L [place], DPT Balance/Gait/Functional tests - Balance/Special Test Scores Lower Extremity Functional Score: 36
== END 2021-07-08 19:00 | disposition home or self-care (01) ==
LOC: PT 15:30
PROVIDERS: PCP Internal Medicine; Referring Provider Student in an Organized Health Care Education/Training Program; Visit Provider Student in an Organized Health Care Education/Training Program
DX: S93.402D Sprain of unspecified ligament of left ankle, subsequent encounter (principal); X58.XXXD Exposure to other specified factors, subsequent encounter
CPT/HCPCS: 97110; 97113; 97161; 97164

== ENCOUNTER → 2021-09-01 | Outpatient (CLI) | payer SELFPAY ==
[2021-09-01 16:40] LABS: Absolute Lymphocyte Count 2.34 X10^3/uL (0.83-4.51); Absolute Neutrophil Count 3.7 X10^3/uL (2.0-7.7); Basophil# 0.05 X10^3/uL; Basophil% 0.8 % (0-1); Eosinophil# 0.11 X10^3/uL; Eosinophils% 1.7 % (0-5); Hematocrit 40.1 % (37-47); Hemoglobin 12.5 g/dL (12.0-15.0); Lymphocyte # 2.34 X10^3/ul (0.83-4.51); Lymphocyte % 35.3 % (19-41); Mean Corp Hgb Conc 31.2 g/dL (32-36); Mean Corpuscular Hgb 26.6 pg (27.0-32.0); Mean Corpuscular Volume 85.3 fL (81-99); Monocyte# 0.38 X10^3/uL; Monocyte% 5.7 % (0-10); NRBC Flagged by Analyzer 0 % (0-5); Neutrophil # 3.73 X10^3/uL (2.7-7.7); Neutrophil % 56.2 % (47-70); Platelet Count 440 K/mm3 (150-450); RBC Distribution Width CV 15.8 % (11.6-14.6); RBC Distribution Width SD 49.1 fl (35.1-43.9); White Blood Count 6.6 K/mm3 (4.4-11.0)
[2021-09-01 17:02] LABS: Iron 84 ug/dL (50-170); Iron Binding Capacity,Total 449 ug/dL (250-450); PERCENT IRON SATURATION 18.7 % (15.0-55.0)
== END | disposition home or self-care (01) ==
LOC: BIMLAB 15:55
PROVIDERS: PCP Internal Medicine; Referring Provider Internal Medicine; Visit Provider Internal Medicine
DX: E61.1 Iron deficiency (principal); D64.9 Anemia, unspecified
CPT/HCPCS: 36415; 83540; 83550; 85025

== ENCOUNTER 2023-03-23 13:30 | Emergency (ER) | payer OTHER, SELFPAY ==
[2023-03-23 13:31] VITALS: BP 132/87; PULSE 116; RESP 16; TEMP 37.6; O2SAT 95; BMI 31.6
--- NOTE | 2023-03-23 13:34 | RAD_ITS ---
STUDY: X-RAY CHEST REASON FOR EXAM: Female, 42 years old. Chest pain TECHNIQUE: Single AP portable view of the chest. COMPARISON: Comparison is made with prior study dated October 16, 2021. FINDINGS: The lungs are clear and expanded. There is no demonstrated pleural abnormality. Normal size heart. Normal mediastinum and leno. Normal visualized pulmonary arteries. Normal visualized aortic arch and descending thoracic aorta. Normal visualized thoracic spine. Normal visualized ribs, clavicles, and shoulders. There is no demonstrated abnormality of the visualized soft tissue structures of the upper abdomen. RAD/Chest 1 View (Portable) IMPRESSION: Normal x-ray examination of the chest. Electronically Signed: Julian Cruz MD at 14:44 EST ,
[2023-03-23 14:12] LABS: Absolute Lymphocyte Count 1.28 X10^3/uL (0.83-4.51); Absolute Neutrophil Count 5.1 X10^3/uL (2.0-7.7); Basophil# 0.03 X10^3/uL; Basophil% 0.4 % (0-1); Hemoglobin 11.9 g/dL (12.0-15.0); Lymphocyte # 1.28 X10^3/ul (0.83-4.51); Lymphocyte % 18.6 % (19-41); Mean Corp Hgb Conc 31.3 g/dL (32-36); Mean Corpuscular Volume 86.4 fL (81-99); Mean Platelet Vol. 8.7 fl (6.2-12.0); Monocyte# 0.52 X10^3/uL; Monocyte% 7.5 % (0-10); NRBC Flagged by Analyzer 0 % (0-5); Neutrophil # 5.05 X10^3/uL (2.7-7.7); Neutrophil % 73.2 % (47-70); Platelet Count 352 K/mm3 (150-450); RBC Distribution Width CV 14.6 % (11.6-14.6); RBC Distribution Width SD 46.4 fl (35.1-43.9); White Blood Count 6.9 K/mm3 (4.4-11.0)
[2023-03-23 14:37] LABS: Anion Gap 4 (5-15); BUN 7 mg/dL (7-18); BUN/Creat Ratio 10.1 RATIO (10-20); Calcium,Total 8.8 mg/dL (8.5-10.1); Chloride 105 mmol/L (98-107); Creatinine, Serum 0.69 mg/dL (0.55-1.02); EST Glomerular Filtration Rate 97 mL/min (>60); Est Glom Filt Rate - Afr Amer 118 mL/min (>60); Estimated Creatinine Clearance 86.07 ml/min; Glucose 101 mg/dL (74-106); Potassium 3.5 mmol/L (3.5-5.1); Sodium Level 138 mmol/L (136-145); Troponin-I HS (w/2H Reflex) < 3 pg/mL (3.0-54.0)
[2023-03-23 16:07] LABS: Reflex Troponin-HS? (from REC) Y
[2023-03-23 16:31] VITALS: BP 137/79; PULSE 103; RESP 12; O2SAT 99
[2023-03-23 17:03] LABS: Troponin-I HS < 3 pg/mL (3.0-54.0)
--- NOTE | 2023-03-23 17:28 | CT_ITS ---
STUDY: CTA CHEST REASON FOR EXAM: Female, 42 years old. chest pain RADIATION DOSAGE (If Supplied By Facility): CTDIvol = ( 22.30 ) mGy, DLP = ( 483.11 ) mGycm TECHNIQUE: The examination was performed with the intravenous administration of IV 100mL Isovue-370. Post-processing of the angiographic images was performed, with multiplanar reformation and 3D reconstruction. Individualized dose optimization techniques were used for this CT. COMPARISON: No relevant prior comparison study available FINDINGS: PULMONARY ARTERIES: Normal enhancement of the main pulmonary artery and right and left pulmonary arteries. Normal enhancement of the bilateral peripheral pulmonary arteries. There is no demonstrated pulmonary embolism. AORTA: Normal thoracic aorta and visualized great vessels. There is no demonstrated aortic dissection. MEDIASTINUM: Normal heart and pericardium. Normal mediastinum. Normal hilar regions. LUNGS/PLEURA: Normal visualized trachea and bronchi. The lungs are well expanded. Normal pulmonary parenchyma. Normal pleura. No pneumothorax. CHEST WALL: Normal chest wall structures. UPPER ABDOMEN: Normal visualized upper abdomen. OSSEOUS STRUCTURES: No acute or suspicious osseous abnormality. CT/CTA Chest W/WO Contrast IMPRESSION: No pulmonary embolism or other acute intrathoracic abnormality. Electronically Signed: Nitish Freedman MD at 18:17 [facility] ,
--- NOTE | 2023-03-23 17:28 | CT_ITS ---
INDICATION: neck pain EXAMINATION: CT CERVICAL SPINE - CT Spine Cervical W/O Contrast Injection TECHNIQUE: Helically acquired images were obtained of the cervical spine. 2D reformatted images were reviewed. A radiation dose optimization technique was used for this scan. IV Contrast dosage and agent: None. RADIATION DOSAGE (If Supplied By Facility): CTDIvol = ( 22.30 ) mGy, DLP = ( 483.11 ) mGycm COMPARISON: No relevant prior comparison study available FINDINGS: VERTEBRAE: No fracture or traumatic subluxation. No discrete lytic or blastic abnormality. Normal alignment. Normal craniocervical junction and cervicothoracic junction. DISCS and SPINAL CANAL: Disc heights are preserved. No critical stenosis. NECK SOFT TISSUES: No prevertebral soft tissue swelling. There is no cervical adenopathy. LUNG APICES: Clear. CT/Spine Cervical without Contras IMPRESSION: No evidence of acute cervical spinal fracture or spondylolisthesis. Electronically Signed: Nitish Freedman MD at 18:10 EST ,
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
--- NOTE | 2023-03-23 17:36 | CT_ITS ---
INDICATION: parasthesia EXAMINATION: CT BRAIN - CT Head Stroke Protocol W/O Contrast Injection TECHNIQUE: Multiple axial images were obtained of the head without intravenous contrast. A radiation dose optimization technique was used for this scan. IV Contrast dosage and agent: None. RADIATION DOSAGE (If Supplied By Facility): CTDIvol = ( 97 ) mGy, DLP = ( 1725 ) mGycm COMPARISON: No relevant prior comparison study available FINDINGS: BRAIN PARENCHYMA: No intra- or extra-axial hemorrhage. No evidence of acute infarct. No intracranial mass or mass effect. There is preservation of the coronado/white matter interface. Posterior fossa structures are unremarkable. No parenchymal abnormality. CSF SPACES: No cerebral volume loss. No hydrocephalus. Basal cisterns are patent. CALVARIUM, SKULL BASE, PARANASAL SINUSES AND MASTOID AIR CELLS: Scattered secretions throughout the ethmoid air cells. Mild bilateral maxillary sinus mucosal thickening. The calvarium is intact. No discrete lytic or blastic abnormalities. ORBITS: Both globes, extraocular muscles, optic nerves and retrobulbar fat appear unremarkable. CT/Brain/Head without Contrast IMPRESSION: No acute intracranial finding. Normal CT imaging appearance of the brain. Mild paranasal sinus inflammation. Electronically Signed: Nitish Freedman MD at 18:09 EST Reading Location ID and State: [facility] / [place] Tel , Service support ,
[2023-03-23] MEDS: Ketorolac 15 MG/ML Vial IV (17:37)
[2023-03-23 20:00] VITALS: BP 132/82; PULSE 75; RESP 18; O2SAT 100
[2023-03-23] MEDS: Orphenadrine 60 MG/2 ML Ampul IM (20:47)
[2023-03-23 20:53] VITALS: BP 134/80; PULSE 73; RESP 18; O2SAT 100
== END 2023-03-23 21:32 | disposition home or self-care (01) ==
PROVIDERS: Emergency Provider Student in an Organized Health Care Education/Training Program; PCP Internal Medicine; Visit Provider Student in an Organized Health Care Education/Training Program
DX: U07.1 COVID-19 (principal); M54.2 Cervicalgia; Z87.891 Personal history of nicotine dependence; R07.9 Chest pain, unspecified; Z90.49 Acquired absence of other specified parts of digestive tract; V43.52XA Car driver injured in collision with other type car in traffic accident, initial encounter; Y92.410 Unspecified street and highway as the place of occurrence of the external cause
CPT/HCPCS: 70450; 71045; 71275; 72125; 80048; 84484; 85025; 87426; 93005; 96372; 96374; 99284; Q9967; A4216